=== PATIENT | female | born 1960 | race Asian ===

== ENCOUNTER 2021-04-15 22:07 | Emergency (ER) | payer OTHER ==
[2021-04-15 22:38] VITALS: TEMP 98.5; BMI 25.6
[2021-04-15 23:31] VITALS: BP 110/88; PULSE 103
== END 2021-04-16 00:03 | disposition home or self-care (01) ==
LOC: JER 22:07
DX: J34.0 Abscess, furuncle and carbuncle of nose (principal)
CPT/HCPCS: 99283-25